=== PATIENT | female | born 1995 | race African-American/Black ===

== ENCOUNTER 2016-03-28 13:27 | Observation (INO) | payer SELFPAY ==
[2016-03-28 13:28] VITALS: BMI 23.3
[2016-03-28 13:54] LABS: AUTOMATED BASOPHIL 0.7 % (0-2); AUTOMATED EOSINOPHIL 1.2 % (0-5); AUTOMATED LYMPH 30.2 % (17-44); AUTOMATED MONOCYTE 7.1 % (3-10); AUTOMATED NEUTROPHIL 60.8 % (45-76); MPV 8.9 fL (7.4-10.4)
[2016-03-28 14:04] LABS: ALL NEG? NO
[2016-03-28 14:11] LABS: BLOOD UREA NITROGEN 9 MG/DL (7-17); CALCIUM 9.2 MG/DL (8.4-10.2); CALCULATED OSMOLALITY 272 MOs/Kg (270-290); CHLORIDE 107 mEq/L (98-107); ETOH-MGDL < 10 mg/dL; GLUCOSE 90 MG/DL (70-99); SODIUM LEVEL 142 mEq/L (137-146); TOTAL PROTEIN 7.7 G/DL (6.3-8.2)
[2016-03-28 14:21] LABS: LEUKOCYTES/URINE 2+ (NEGATIVE); MDMA* NEG (NEGATIVE); METHAMPHETAMINES NEG (NEGATIVE); NITRITE/URINE NEG (NEGATIVE); OXYCODONE NEG (NEGATIVE); URINE OCCULT BLOOD NEG (NEG/TRACE)
[2016-03-28] MEDS ORDERED: ZIPRASIDONE 20 MG VIAL IM ONE (14:56)
[2016-03-28] MEDS ORDERED: ACETAMINOPHEN 325 MG/TAB TABLET PO PRN (14:56)
[2016-03-28] MEDS ORDERED: LORAZEPAM 1 MG TAB PO PRN (14:56)
[2016-03-28] MEDS ORDERED: BISACODYL 5 MG TAB PO PRN (14:56)
[2016-03-28] MEDS ORDERED: Docusate Sodium 100 MG CAP PO PRN (14:56)
[2016-03-28] MEDS ORDERED: MAGNESIUM HYDROXIDE 30 ML BOTTLE PO PRN (14:56)
[2016-03-28] MEDS ORDERED: LORAZEPAM 2 MG/ML VIAL IM ONE (14:56)
[2016-03-28] MEDS ORDERED: ONDANSETRON HCL 4 MG ODT TAB PO PRN (14:56)
[2016-03-28] MEDS ORDERED: NICOTINE 21 MG PATCH TOP SCH (15:00)
[2016-03-28] MEDS ORDERED: WATER 10 ML ONE (15:01)
--- NOTE | 2016-03-28 15:06 | EDPRACDOC ---
- General Information Chief Complaint: Psychiatric Illness Stated Complaint: IVC Time Seen by Provider: 03/28/16 14:56 Information Source: Patient, Police Mode of Arrival: Law Enforcement Home Medications: Home Medications No Home Medications 03/28/16 Allergies/Adverse Reactions: Allergies Allergy/AdvReac Type Severity Reaction Status Date / Time aspirin Allergy See Verified 03/28/16 13:41 Comments Penicillins Allergy Unknown Verified 03/28/16 13:41 Sulfa (Sulfonamide Allergy Unknown Verified 03/28/16 13:41 Antibiotics) - History of Present Illness Onset: 03/24 HPI: PT SENT FROM [facility] FOR SUICIDAL IDEATIONS HEARING VOICES AND TOOK 24 SLEEPING PILLS ON THURSDAY BUT DIDNT WORK. PT HAS PAST H/O SAME. PT IS VERY UNCOOPERATIVE GUARDED NOT WILLING TO TALK ABOUT ANYTHING AND CONTINUES TO STARE AT THE POLICE OFFICERS GUN. WHEN I ENTERED THE ROOM MADISON HAD PT ON GROUND RESTRAINING HER DUE TO PATIENT BEING UNCOOPERATIVE AND TRYING TO LEAVE THE FACILITY. Reason for Seeking Treatment: Other ([facility] IVC) Presents With: Reports: Depression, Unclear Thinking, Suicidal Ideation, Auditory Hallucinations Expresses: Reports: Suicidal Plan (OVERDOSE WITH ATTEMPT ON THURSDAY) Suicidal Plan: Reports: Overdose Relevant History: Reports: Depression, Suicidal Attempt Medication Compliance: No Able to Care for Self: No Able to Control Self: No Associated Signs and Symptoms: Reports: Other (SI, GUARDED NOT COOPERATIVE WITH INTERVIEW) ED Past Medical History - History Reviewed Yes Nurses notes reviewed and agree except as marked Travel Outside of [place] in the Last 3 Months?: No - Patient Medical History Psychological History: Reports: Bipolar Disorder, Substance Use Disorder, PMH Psychological hx Yes/No Other (PREVIOUS SUICIDAL IDEATIONS AND ATTEMPTS IN THE REMOTE PAST). Denies: Depression - Social Medical History Smoking Status: Never smoker Social History: Reports: Substance Use Disorder ETOH: None Substance Abuse: None Lives With: Other Lives In: Home EDM Review of Systems - Review of Systems ROS Negative Except as Marked: Yes All systems reviewed and were negative except as marked Constitutional: No Symptoms Reported. negative: Fever, Chills, Weakness, Fatigue, Loss of Appetite Eyes: No Symptoms Reported. negative: Redness, Blurred Vision, Double Vision, Discharge, Pain, Light Sensitive, Photophobia Ears: No Symptoms Reported. negative: Pain, Hearing Loss, Drainage, Ear Pulling Throat: No Symptoms Reported. negative: Pain, Swelling Nose: No Symptoms Reported. negative: Congestion, Bleeding, Discharge, Injection, Swelling, Deformity, Ecchymosis, Tender, Abrasion, Laceration Mouth: No Symptoms Reported. negative: Pain, Drooling Respiratory: No Symptoms Reported. negative: Cough, Brassy Cough, Barky Cough, Shortness of Breath, Wheezing, Hemoptysis Cardiovascular: No Symptoms Reported. negative: Chest Pain, Palpitations, Syncope, Edema, Orthopnea, PND, Skin Mottling, Cyanosis Gastrointestinal: No Symptoms Reported. negative: Pain, Constipation, Nausea, Vomiting, Diarrhea, Melena, Formula Intolerance Genitourinary: No Symptoms Reported. negative: Dysuria, Hematuria, Frequency, Discharge, Bleeding, Testicular Pain, Neurological: No Symptoms Reported. negative: Headache, Dizziness, Seizure, Numbness, Weakness, Speech Difficulty, Gait Difficulty Musculoskeletal: No Symptoms Reported. negative: Neck, Chestwall, Ribs, Back, Shoulder, Arm, Elbow, Forearm, Wrist, Hand, Pelvis, Hip, Femur, Knee, Leg, Ankle , Foot Integumentary: No Symptoms Reported. negative: Itching, Rash, Bruising, Wound Allergic/Immunologic: No Symptoms Reported. negative: Hives, Itching Hematologic: No Symptoms Reported. negative: Lymphadenopathy, Easy Bruising, Easy Bleeding Endocrine: No Symptoms Reported. negative: Weight Gain, Weight Loss Psychiatric: Other (AGGRESSIVE, AGITATED UNCOOPERATIVE AND GUARDED). negative: Anxiety, Depression, Hallucinations, Insomnia, Suicidal - Physical Exam Constitutional: Alert (Awake), Agitated, Uncooperative Oriented to: Time, Person, Place Last recorded Vital Signs: Last Vital Signs Temp 98.0 F 03/28/16 13:41 Pulse 80 03/28/16 13:41 Resp 18 03/28/16 13:41 BP 143/58 L 03/28/16 13:41 Pulse Ox 99 03/28/16 13:41 Oxygen Pulse Oxygen Saturation 99 O2 Device Room Air Oxygen Flow Rate Fraction of Inspired Oxygen ( FIO2) - HEENT Head: Normal ( normocephalic) Eye Exam: Normal (PERRL, EOMI, Sclera white) Oropharynx: Normal (Pharynx:Moist without exudate,Gums-no swelling) Tympanic Membrane: Normal ENT EAC: Normal TMJ: Normal Nose: No Symptoms Reported (septum midline) Neck: Normal (FROM, trachea at midline) - Respiratory/Cardiovascular Respiratory: Normal - CTA (BBS clear to auscultation without adventitious sounds ) Cardiovascular: Normal (RRR without murmur, gallop or rub) - GI Auscultation: Normal (NABS) Palpation: Normal (Soft,No rebound or guarding, non distended) Tenderness: Non tender [place]'s Sign: Negative - Bladder: Normal - Musculoskeletal Back: Normal (Non-Tender) Extremities: Normal (Normal tone, Pulses 2+ No cyanosis or edema, FROM) - Integumentary Skin: Normal, Warm, Dry Lymphatics: Normal (no adenopathy) - Neurologic Memory Impaired: Normal Motor Function: Normal (Normal tone, Pulses 2+ No cyanosis or edema, FROM) Cranial Nerve: Normal (CN II-X11 intact sensation, strength 5/5) Cerebellar: Normal Mood Description: Agitated, Uncooperative Thought: Coherent Perception: Auditory Hallucinations Initial Evaluation Apperance: Stated Age Attitude: Hostile, Guarded Mood: Angry Affect: Labile, Angry, Irritable Insight: Impaired Judgement: Impaired Manic/Hypomanic Symptoms: Reports: Expansive/irritable mood, Other (AGGRESSIVE) Recommend /or Refer: Involuntary Commitment - Differential Diagnosis Bipolar disorder, Substance abuse, Suicidal - Results 03/28/16 13:45 03/28/16 13:45 WBC 4.9 xk/uL (3.8-10.8) 03/28/16 13:45 RBC 4.35 xM/uL (4.20-5.40) 03/28/16 13:45 Hgb 13.5 g/dL (12.0-16.0) 03/28/16 13:45 Hct 40.5 % (36-47) 03/28/16 13:45 MCV 93 fL (81-99) 03/28/16 13:45 MCH 31.1 pg (27-32) 03/28/16 13:45 MCHC 33.3 g/dl (33-36) 03/28/16 13:45 RDW 13.8 % (11.5-14.5) 03/28/16 13:45 Plt Count 243 xk/uL (130-400) 03/28/16 13:45 MPV 8.9 fL (7.4-10.4) 03/28/16 13:45 Neut % (Auto) 60.8 % (45-76) 03/28/16 13:45 Lymph % (Auto) 30.2 % (17-44) 03/28/16 13:45 [place] % (Auto) 7.1 % (3-10) 03/28/16 13:45 Eos % (Auto) 1.2 % (0-5) 03/28/16 13:45 Baso % (Auto) 0.7 % (0-2) 03/28/16 13:45 Absolute Neuts (auto) 2.94 xk/uL (1.7-8.2) 03/28/16 13:45 Absolute Lymphs (auto) 1.47 xk/uL (0.65-4.75) 03/28/16 13:45 Sodium 142 mEq/L (137-146) 03/28/16 13:45 Potassium 3.8 mEq/L (3.5-5.1) 03/28/16 13:45 Chloride 107 mEq/L (98-107) 03/28/16 13:45 Carbon Dioxide 22 mMOL/L (22-33) 03/28/16 13:45 Anion Gap 17 mEq/L (8-16) H 03/28/16 13:45 BUN 9 MG/DL (7-17) 03/28/16 13:45 Creatinine 0.80 MG/DL (0.52-1.04) 03/28/16 13:45 Estimated GFR (MDRD) > 60 mL/min (>=60) 03/28/16 13:45 Glucose 90 MG/DL (70-99) 03/28/16 13:45 Calculated Osmolality 272 MOs/Kg (270-290) 03/28/16 13:45 Calcium 9.2 MG/DL (8.4-10.2) 03/28/16 13:45 Total Bilirubin 0.7 MG/DL (0.2-1.3) 03/28/16 13:45 AST 32 IU/L (14-36) 03/28/16 13:45 ALT 56 IU/L (9-52) H 03/28/16 13:45 Alkaline Phosphatase 55 IU/L (38-126) 03/28/16 13:45 Total Protein 7.7 G/DL (6.3-8.2) 03/28/16 13:45 Albumin 4.1 G/DL (3.5-5.0) 03/28/16 13:45 Urine Color Yellow 03/28/16 13:45 Urine Clarity Sl cldy 03/28/16 13:45 Urine pH 6.0 (5.0-8.0) 03/28/16 13:45 Ur Specific [place] 1.025 (1.003-1.035) 03/28/16 13:45 Urine Protein Neg (NEG/TRACE) 03/28/16 13:45 Urine Glucose (UA) Neg (NEGATIVE) 03/28/16 13:45 Urine Ketones Neg (NEGATIVE) 03/28/16 13:45 Urine Occult Blood Neg (NEG/TRACE) 03/28/16 13:45 Urine Nitrite Neg (NEGATIVE) 03/28/16 13:45 Urine Bilirubin Neg (NEGATIVE) 03/28/16 13:45 Urine Urobilinogen <2.0 MG/DL (0-1) 03/28/16 13:45 Ur Leukocyte Esterase 2+ (NEGATIVE) H 03/28/16 13:45 Urine RBC 5-10 (0-5) H 03/28/16 13:45 Urine WBC 5-10 (0-5) H 03/28/16 13:45 Ur Epithelial Cells 3+ 03/28/16 13:45 Urine Bacteria 1+ (NEG/FEW) H 03/28/16 13:45 Urine Mucus Mod (NEG/OCC) H 03/28/16 13:45 Urine Test Neg (NEGATIVE) 03/28/16 13:45 Urine Opiates Screen Neg (NEGATIVE) 03/28/16 13:45 Ur Oxycodone Screen Neg (NEGATIVE) 03/28/16 13:45 Urine Methadone Screen Neg (NEGATIVE) 03/28/16 13:45 Ur Barbiturates Screen Neg (NEGATIVE) 03/28/16 13:45 Ur Tricyclics Screen Neg (NEGATIVE) 03/28/16 13:45 Ur Phencyclidine Scrn Neg (NEGATIVE) 03/28/16 13:45 Ur Amphetamines Screen Neg (NEGATIVE) 03/28/16 13:45 U Methamphetamines Scrn Neg (NEGATIVE) 03/28/16 13:45 Urine MDMA Screen Neg (NEGATIVE) 03/28/16 13:45 U Benzodiazepines Scrn Neg (NEGATIVE) 03/28/16 13:45 Urine Cocaine Screen Neg (NEGATIVE) 03/28/16 13:45 Ur THC Screen *positive* (NEGATIVE) H 03/28/16 13:45 Plasma/Serum Ethyl Alc % (<0.01) 03/28/16 13:45 Lab Results 03/28/16 03/28/16 03/28/16 13:45 13:45 13:45 WBC RBC Hgb Hct MCV MCH MCHC RDW Plt Count MPV Neut % (Auto) Lymph % (Auto) [place] % (Auto) Eos % (Auto) Baso % (Auto) Absolute Neuts (auto) Absolute Lymphs (auto) Sodium Potassium Chloride Carbon Dioxide Anion Gap BUN Creatinine Estimated GFR (MDRD) Glucose Calculated Osmolality Calcium Total Bilirubin AST ALT Alkaline Phosphatase Total Protein Albumin Urine Color Yellow Urine Clarity Sl cldy Urine pH 6.0 Ur Specific [place] 1.025 Urine Protein Neg Urine Glucose (UA) Neg Urine Ketones Neg Urine Occult Blood Neg Urine Nitrite Neg Urine Bilirubin Neg Urine Urobilinogen <2.0 Ur Leukocyte Esterase 2+ H Urine RBC 5-10 H Urine WBC 5-10 H Ur Epithelial Cells 3+ Urine Bacteria 1+ H Urine Mucus Mod H Urine Test Neg Urine Opiates Screen Neg Ur Oxycodone Screen Neg Urine Methadone Screen Neg Ur Barbiturates Screen Neg Ur Tricyclics Screen Neg Ur Phencyclidine Scrn Neg Ur Amphetamines Screen Neg U Methamphetamines Scrn Neg Urine MDMA Screen Neg U Benzodiazepines Scrn Neg Urine Cocaine Screen Neg Ur THC Screen *positive* H Plasma/Serum Ethyl Alc 03/28/16 03/28/16 13:45 13:45 WBC 4.9 RBC 4.35 Hgb 13.5 Hct 40.5 MCV 93 MCH 31.1 MCHC 33.3 RDW 13.8 Plt Count 243 MPV 8.9 Neut % (Auto) 60.8 Lymph % (Auto) 30.2 [place] % (Auto) 7.1 Eos % (Auto) 1.2 Baso % (Auto) 0.7 Absolute Neuts (auto) 2.94 Absolute Lymphs (auto) 1.47 Sodium 142 Potassium 3.8 Chloride 107 Carbon Dioxide 22 Anion Gap 17 H BUN 9 Creatinine 0.80 Estimated GFR (MDRD) > 60 Glucose 90 Calculated Osmolality 272 Calcium 9.2 Total Bilirubin 0.7 AST 32 ALT 56 H Alkaline Phosphatase 55 Total Protein 7.7 Albumin 4.1 Urine Color Urine Clarity Urine pH Ur Specific [place] Urine Protein Urine Glucose (UA) Urine Ketones Urine Occult Blood Urine Nitrite Urine Bilirubin Urine Urobilinogen Ur Leukocyte Esterase Urine RBC Urine WBC Ur Epithelial Cells Urine Bacteria Urine Mucus Urine Test Urine Opiates Screen Ur Oxycodone Screen Urine Methadone Screen Ur Barbiturates Screen Ur Tricyclics Screen Ur Phencyclidine Scrn Ur Amphetamines Screen U Methamphetamines Scrn Urine MDMA Screen U Benzodiazepines Scrn Urine Cocaine Screen Ur THC Screen Plasma/Serum Ethyl Alc - Departure Disposition: Admit to Condition: Stable Final Diagnosis: Agitation, Suicidal ideations, Aggressive behavior, Auditory hallucinations UTI (urinary tract infection) Qualifiers: Urinary tract infection type: acute cystitis Hematuria presence: with hematuria Qualified Code(s): N30.01 - Acute cystitis with hematuria Education/Counseling Given To: Patient Education/Counseling Given Regarding: Diagnosis, Treatment, Prognosis, Follow Up
[2016-03-28] MEDS: CIPROFLOXACIN HCL 500 MG TAB PO SCH ×2 (20:07→22:33)
[2016-03-28] MEDS: RISPERIDONE 1 MG TAB PO SCH ×2 (21:19→22:33)
[2016-03-29 06:06] VITALS: TEMP 98.3
[2016-03-29] MEDS: RISPERIDONE 1 MG TAB PO SCH (09:07)
[2016-03-29] MEDS: CIPROFLOXACIN HCL 500 MG TAB PO SCH (09:07)
[2016-03-29 14:48] VITALS: BP 116/69; PULSE 103
== END 2016-03-29 14:45 | disposition home or self-care (01) ==
LOC: ED 13:27 → EDINP 14:56 → TUOBSINP 20:13
PROVIDERS: ADMIT Emergency Medicine; ATTEND Physician Assistant Medical
DX: R45.1 Restlessness and agitation (principal); R45.851 Suicidal ideations; R44.0 Auditory hallucinations; N30.01 Acute cystitis with hematuria; F91.8 Other conduct disorders
CPT/HCPCS: 36415; 80053; 80307; 80329; 81001; 81025; 85025; 86592; 87086; 96372; 99285; G0378; J2060; J3486; J3490; E0710

== ENCOUNTER 2016-04-03 22:14 | Emergency (ER) | payer SELFPAY ==
[2016-04-03 22:14] VITALS: BMI 23.3
[2016-04-03 23:34] VITALS: BP 132/66; PULSE 88; TEMP 98.6
[2016-04-03 23:53] LABS: AUTOMATED BASOPHIL 0.5 % (0-2); AUTOMATED EOSINOPHIL 0.1 % (0-5); AUTOMATED MONOCYTE 6.4 % (3-10); MPV 9.7 fL (7.4-10.4)
[2016-04-04 00:14] LABS: BLOOD UREA NITROGEN 14 MG/DL (7-17); CALCIUM 9.3 MG/DL (8.4-10.2); CALCULATED OSMOLALITY 270 MOs/Kg (270-290); CHLORIDE 108 mEq/L (98-107); ETOH-MGDL < 10 mg/dL; GLUCOSE 94 MG/DL (70-99); SODIUM LEVEL 140 mEq/L (137-146); TOTAL PROTEIN 7.6 G/DL (6.3-8.2)
--- NOTE | 2016-04-04 03:32 | EDPRACDOC ---
- General Information Chief Complaint: Psychiatric Illness Stated Complaint: PSYCH EVAL Time Seen by Provider: 04/04/16 02:46 Information Source: Patient Mode of Arrival: Car Home Medications: Home Medications No Home Medications 03/28/16 Allergies/Adverse Reactions: Allergies Allergy/AdvReac Type Severity Reaction Status Date / Time aspirin Allergy See Verified 03/28/16 13:41 Comments Penicillins Allergy Unknown Verified 03/28/16 13:41 Sulfa (Sulfonamide Allergy Unknown Verified 03/28/16 13:41 Antibiotics) - History of Present Illness Suicidal Plan: Reports: None Suicidal Attempt: Reports: N - Treatment Prior to ED Arrival Reported Medications/Treatment [employer] [facility] Treatment BLS ED Past Medical History - Patient Medical History Psychological History: Reports: Bipolar Disorder, Substance Use Disorder. Denies: Depression Surgical History: Denies: Hysterectomy - Social Medical History Smoking Status: Current some day smoker Social History: Reports: Substance Use Disorder - Physical Exam Last recorded Vital Signs: Last Vital Signs Temp 98.6 F 04/03/16 23:32 Pulse 88 04/03/16 23:32 Resp 20 04/03/16 23:32 BP 132/66 04/03/16 23:32 Pulse Ox 100 04/03/16 23:32 Oxygen Pulse Oxygen Saturation 100 O2 Device Room Air Oxygen Flow Rate Fraction of Inspired Oxygen ( FIO2) Initial Evaluation Apperance: Stated Age Attitude: Hostile, Guarded Mood: Angry Affect: Labile, Angry, Irritable Insight: Impaired Judgement: Impaired - Results 04/03/16 23:38 04/03/16 23:38 WBC 7.6 xk/uL (3.8-10.8) 04/03/16 23:38 RBC 4.04 xM/uL (4.20-5.40) L 04/03/16 23:38 Hgb 12.6 g/dL (12.0-16.0) 04/03/16 23:38 Hct 37.6 % (36-47) 04/03/16 23:38 MCV 93 fL (81-99) 04/03/16 23:38 MCH 31.1 pg (27-32) 04/03/16 23:38 MCHC 33.5 g/dl (33-36) 04/03/16 23:38 RDW 13.9 % (11.5-14.5) 04/03/16 23:38 Plt Count 218 xk/uL (130-400) 04/03/16 23:38 MPV 9.7 fL (7.4-10.4) 04/03/16 23:38 Neut % (Auto) 82.0 % (45-76) H 04/03/16 23:38 Lymph % (Auto) 11.0 % (17-44) L 04/03/16 23:38 [place] % (Auto) 6.4 % (3-10) 04/03/16 23:38 Eos % (Auto) 0.1 % (0-5) 04/03/16 23:38 Baso % (Auto) 0.5 % (0-2) 04/03/16 23:38 Absolute Neuts (auto) 6.23 xk/uL (1.7-8.2) 04/03/16 23:38 Absolute Lymphs (auto) 0.84 xk/uL (0.65-4.75) 04/03/16 23:38 Sodium 140 mEq/L (137-146) 04/03/16 23:38 Potassium 4.6 mEq/L (3.5-5.1) 04/03/16 23:38 Chloride 108 mEq/L (98-107) H 04/03/16 23:38 Carbon Dioxide 18 mMOL/L (22-33) L 04/03/16 23:38 Anion Gap 19 mEq/L (8-16) H 04/03/16 23:38 BUN 14 MG/DL (7-17) 04/03/16 23:38 Creatinine 0.90 MG/DL (0.52-1.04) 04/03/16 23:38 Estimated GFR (MDRD) > 60 mL/min (>=60) 04/03/16 23:38 Glucose 94 MG/DL (70-99) 04/03/16 23:38 Calculated Osmolality 270 MOs/Kg (270-290) 04/03/16 23:38 Calcium 9.3 MG/DL (8.4-10.2) 04/03/16 23:38 Total Bilirubin 0.3 MG/DL (0.2-1.3) 04/03/16 23:38 AST 35 IU/L (14-36) 04/03/16 23:38 ALT 70 IU/L (9-52) H 04/03/16 23:38 Alkaline Phosphatase 63 IU/L (38-126) 04/03/16 23:38 Total Protein 7.6 G/DL (6.3-8.2) 04/03/16 23:38 Albumin 4.2 G/DL (3.5-5.0) 04/03/16 23:38 Plasma/Serum Ethyl Alc % (<0.01) 04/03/16 23:38 Lab Results 04/03/16 04/03/16 23:38 23:38 WBC 7.6 RBC 4.04 L Hgb 12.6 Hct 37.6 MCV 93 MCH 31.1 MCHC 33.5 RDW 13.9 Plt Count 218 MPV 9.7 Neut % (Auto) 82.0 H Lymph % (Auto) 11.0 L [place] % (Auto) 6.4 Eos % (Auto) 0.1 Baso % (Auto) 0.5 Absolute Neuts (auto) 6.23 Absolute Lymphs (auto) 0.84 Sodium 140 Potassium 4.6 Chloride 108 H Carbon Dioxide 18 L Anion Gap 19 H BUN 14 Creatinine 0.90 Estimated GFR (MDRD) > 60 Glucose 94 Calculated Osmolality 270 Calcium 9.3 Total Bilirubin 0.3 AST 35 ALT 70 H Alkaline Phosphatase 63 Total Protein 7.6 Albumin 4.2 Plasma/Serum Ethyl Alc - Additional Information Additional Information: PT PRESENTED TO THE ED WITH CLAIMS OF WANTING TO HURT HER GIRLFRIEND. SHE ELOPED PRIOR TO EVALUATION. I COMPLETED IVC TO HAVE PT BROUGHT BACK TO ED FOR EVALUATION TO ASSURE PT AND GF SAFETY. PT WAS NOT SEEN BY PHYSICIAN OR PA. - Departure Disposition: Eloped
== END 2016-04-04 02:47 | disposition left against medical advice (07) ==
LOC: ED 22:14
DX: F99 Mental disorder, not otherwise specified (principal)
CPT/HCPCS: 80053; 80307; 85025; 86592; 99282

== ENCOUNTER 2016-04-10 00:34 | Emergency (ER) | payer SELFPAY ==
[2016-04-10 00:55] VITALS: BP 124/59; PULSE 81; TEMP 98.2; BMI 22.1
--- NOTE | 2016-04-10 02:10 | EDPRACDOC ---
- General Information Chief Complaint: Anxiety Illness Stated Complaint: ANXIETY Time Seen by Provider: 04/10/16 02:04 Home Medications: Home Medications Risperidone [Risperdal] 0.5 mg PO DAILY #30 tablet 04/10/16 Allergies/Adverse Reactions: Allergies Allergy/AdvReac Type Severity Reaction Status Date / Time aspirin Allergy See Verified 03/28/16 13:41 Comments Penicillins Allergy Unknown Verified 03/28/16 13:41 Sulfa (Sulfonamide Allergy Unknown Verified 03/28/16 13:41 Antibiotics) - History of Present Illness Onset: 2 weeks HPI: PATIENT STATES SHE SUFFERS WITH ANXIETY. PRESENT COMPLAINT PRESENT FOR 9 MONTHS. USED TO TAKE RISPERDAL BUT RAN OUT 1 YEAR AGO AND DID NOT SEEK REFILL. SHE FEELS SHE NEEDS TO BE BACK ON HER MEDICATION. DENIES SUICIDAL THOUGHTS. Reason for Seeking Treatment: Self-referral Presents With: Reports: Anxiety Expresses: Reports: None Stressors: Reports: Relationships Relevant History: Reports: Anxiety Medication Compliance: No Tetanus Up To Date?: Yes Able to Care for Self: Yes Able to Control Self: Yes Associated Signs and Symptoms: Reports: Anxiety ED Past Medical History - History Reviewed Yes Nurses notes reviewed and agree except as marked Travel Outside of [place] in the Last 3 Months?: No - Patient Medical History Psychological History: Reports: Depression, Anxiety, Schizophrenia, Bipolar Disorder, Substance Use Disorder Surgical History: Denies: Hysterectomy - Social Medical History Smoking Status: Current some day smoker Social History: Reports: Substance Use Disorder Lives With: Family Lives In: Home EDM Review of Systems - Review of Systems ROS Negative Except as Marked: Yes All systems reviewed and were negative except as marked Constitutional: No Symptoms Reported. negative: Fever, Chills, Weakness, Fatigue, Loss of Appetite Eyes: No Symptoms Reported. negative: Redness, Blurred Vision, Double Vision, Discharge, Pain, Light Sensitive, Photophobia Ears: No Symptoms Reported. negative: Pain, Hearing Loss, Drainage, Ear Pulling Throat: No Symptoms Reported. negative: Pain, Swelling Nose: No Symptoms Reported. negative: Congestion, Bleeding, Discharge, Injection, Swelling, Deformity, Ecchymosis, Tender, Abrasion, Laceration Mouth: No Symptoms Reported. negative: Pain, Drooling Respiratory: No Symptoms Reported. negative: Cough, Brassy Cough, Barky Cough, Shortness of Breath, Wheezing, Hemoptysis Cardiovascular: No Symptoms Reported. negative: Chest Pain, Palpitations, Syncope, Edema, Orthopnea, PND, Skin Mottling, Cyanosis Gastrointestinal: No Symptoms Reported. negative: Pain, Constipation, Nausea, Vomiting, Diarrhea, Melena, Formula Intolerance Genitourinary: No Symptoms Reported. negative: Dysuria, Hematuria, Frequency, Discharge, Bleeding, Testicular Pain, Neurological: No Symptoms Reported. negative: Headache, Dizziness, Seizure, Numbness, Weakness, Speech Difficulty, Gait Difficulty Musculoskeletal: No Symptoms Reported. negative: Neck, Chestwall, Ribs, Back, Shoulder, Arm, Elbow, Forearm, Wrist, Hand, Pelvis, Hip, Femur, Knee, Leg, Ankle , Foot Integumentary: No Symptoms Reported. negative: Itching, Rash, Bruising, Wound Allergic/Immunologic: No Symptoms Reported. negative: Hives, Itching Hematologic: No Symptoms Reported. negative: Lymphadenopathy, Easy Bruising, Easy Bleeding Endocrine: No Symptoms Reported. negative: Weight Gain, Weight Loss Psychiatric: Anxiety. negative: Depression, Hallucinations, Insomnia, Suicidal - Physical Exam Constitutional: Alert (Awake), No apparent distress Oriented to: Time, Person, Place Last recorded Vital Signs: Last Vital Signs Temp 98.2 F 04/10/16 00:49 Pulse 81 04/10/16 00:49 Resp 18 04/10/16 00:49 BP 124/59 L 04/10/16 00:49 Pulse Ox 100 04/10/16 00:49 Oxygen Pulse Oxygen Saturation 100 O2 Device Room Air Oxygen Flow Rate Fraction of Inspired Oxygen ( FIO2) - HEENT Head: Normal ( normocephalic) Eye Exam: Normal (PERRL, EOMI, Sclera white) Oropharynx: Normal (Pharynx:Moist without exudate,Gums-no swelling) Tympanic Membrane: Normal ENT EAC: Normal TMJ: Normal Nose: No Symptoms Reported (septum midline) Neck: Normal (FROM, trachea at midline) - Respiratory/Cardiovascular Respiratory: Normal - CTA (BBS clear to auscultation without adventitious sounds ) Cardiovascular: Normal (RRR without murmur, gallop or rub) - GI Auscultation: Normal (NABS) Palpation: Normal (Soft,No rebound or guarding, non distended) Tenderness: Non tender [place]'s Sign: Negative - Musculoskeletal Back: Normal (Non-Tender) Extremities: Normal (Normal tone, Pulses 2+ No cyanosis or edema, FROM) - Integumentary Skin: Normal, Warm, Dry Lymphatics: Normal (no adenopathy) - Neurologic Memory Impaired: Normal Motor Function: Normal (Normal tone, Pulses 2+ No cyanosis or edema, FROM) Cranial Nerve: Normal (CN II-X11 intact sensation, strength 5/5) Cerebellar: Normal Mood Description: Normal Perception: Normal Initial Evaluation Apperance: Stated Age Attitude: Hostile, Guarded Mood: Angry Affect: Labile, Angry, Irritable Insight: Impaired Judgement: Impaired Decision Time to Discharge: 02:09 - Departure Yes I personally saw and evaluated the patient. Disposition: Home Condition: Good Final Diagnosis: Anxiety Instructions: Panic Disorder (ED) Education/Counseling Given To: Patient Education/Counseling Given Regarding: Diagnosis, Treatment, Prognosis, Follow Up Referrals: None,No Provider [Primary Care Provider] - One Week Jamie Rodríguez MD [Staff Physician] - One Week Prescriptions: Risperidone [Risperdal] 0.5 mg PO DAILY #30 tablet
[2016-04-10] MEDS ORDERED: RISPERIDONE 1 MG TAB PO ONE (02:11)
== END 2016-04-10 02:24 | disposition home or self-care (01) ==
LOC: ED 00:34
DX: F41.9 Anxiety disorder, unspecified (principal)
CPT/HCPCS: 99283; J3490